=== PATIENT | male | born 1945 ===

== ENCOUNTER 2024-12-04 09:08 | Day surgery (SDC) | payer OTHER ==
[~2024-12-04] VITALS: Ht 170.2 cm; Wt 90.4 kg
[~2024-12-04 09:08] MED LIST: Balanced Salt Epinephrine Irrigation Solution 500 mL IR SCH; Diazepam 5 MG Tab PO PRN; Diazepam 5 MG Tab PO SCH; Lidocaine HCl/Pf 1% 5 ML VIAL XX SCH; Moxifloxacin HCL 0.5 MG/0.1 ML 0.4MLSYR RIGHTEYE SCH; Ondansetron 4 MG SoluTab MM PRN; PHENYLEPHRINE\\TROPICAMIDE\\TETRACAINE OPHTHALMIC DILATING SOLN RIGHTEYE PRN; Povidone-Iodine 450 DROP/30 ML Solution ONE; Povidone-Iodine 450 DROP/30 ML Solution RIGHTEYE SCH; Tetracaine HCl/Pf 0.5% Opth Soln 4 ml ONE
[2024-12-04] MEDS ORDERED: Diazepam 10 MG Tab ONE (09:27)
[2024-12-04] MEDS ORDERED: JARDIANCE25 MG PO (09:43)
[2024-12-04] MEDS ORDERED: FLUTICASONE-SA1 EAC1 (09:44)
[2024-12-04] MEDS ORDERED: VITAMIN D325 MC3 PO (09:44)
[2024-12-04] MEDS ORDERED: LOSA50 PO (09:45)
[2024-12-04] MEDS ORDERED: TAMS.4ER PO (09:45)
[2024-12-04] MEDS ORDERED: ATOR40TA PO (09:45)
[2024-12-04] MEDS ORDERED: FAMO20 PO (09:46)
[2024-12-04] MEDS ORDERED: MULTIPLE VITAM1 EACH PO (09:46)
[2024-12-04] MEDS ORDERED: FISH OIL 1,4001 EAC2 PO (09:46)
--- NOTE | 2024-12-04 10:18 | NUR ---
12/04/24 1018 Magali Venegas 1013 BP 118/66 HR 58, O2 95% ON BLOW BY, 16 RESP
[2024-12-04 10:33] VITALS: BP 123/81
--- NOTE | 2024-12-04 10:46 | NUR ---
12/04/24 1046 Shabana Poole PARTNER AT [facility]EDS[facility]
== END 2024-12-04 10:46 | disposition home or self-care (01) ==
LOC: ORSCSDS 09:08
PROVIDERS: Student in an Organized Health Care Education/Training Program
PROC: 08RJ3JZ Replacement of Right Lens with Synthetic Substitute, Percutaneous Approach (ICD-10-PCS; principal; 2024-12-04 10:30)
DX: H25.813 Combined forms of age-related cataract, bilateral (principal); H35.63 Retinal hemorrhage, bilateral; E11.22 Type 2 diabetes mellitus with diabetic chronic kidney disease; I12.9 Hypertensive chronic kidney disease with stage 1 through stage 4 chronic kidney disease, or unspecified chronic kidney disease; N18.32 Chronic kidney disease, stage 3b; E78.5 Hyperlipidemia, unspecified; H18.593 Other hereditary corneal dystrophies, bilateral; G47.33 Obstructive sleep apnea (adult) (pediatric); Z79.82 Long term (current) use of aspirin; Z79.899 Other long term (current) drug therapy
CPT/HCPCS: 82947; A9270; V2632